=== PATIENT | male | born 1985 | race Caucasian/White ===

== ENCOUNTER 2020-01-24 07:45 | Emergency (ER) | payer SELFPAY ==
[~2020-01-24] VITALS: Ht 172.7 cm; Wt 86.2 kg
[2020-01-24 07:55] VITALS: BP 135/75; Ht 172.7 cm; Wt 86.2 kg
== END 2020-01-24 09:09 | disposition home or self-care (01) ==
LOC: ED 07:45
DX: H10.9 Unspecified conjunctivitis (principal); Z88.0 Allergy status to penicillin